=== PATIENT | female | born 1990 | race Caucasian/White ===

== ENCOUNTER 2021-09-03 16:09 | Emergency (ER) | payer OTHER, SELFPAY ==
[2021-09-03 16:27] VITALS: BP 115/68; PULSE 73; RESP 18; TEMP 37.1; O2SAT 95; BMI 25.0
--- NOTE | 2021-09-03 16:45 | ED_ITS ---
HPI - General Adult General Chief complaint: Sore Throat Stated complaint: SORE THROAT,CONGESTION Time Seen by Provider: 09/03/21 16:15 History of Present Illness HPI narrative: 30-year-old female coming in today complaining of sore throat for a week. She denies fevers or chills. States that her throat just isn't getting any better. She developed bilateral ear pain in the last couple of days as well with some mildly muffled hearing. She has been coughing but it is nonproductive. She does not feel short of breath and has no chest pain. She denies any sick contacts. She has been doing at home COVID test which have been negative. She denies abdominal discomfort diarrhea or urinary symptoms. She denies any new skin rashes. No recent traveling. No significant headaches. She feels tired but not weak. Related Data Home Medications Medication Instructions Recorded Confirmed gabapentin 100 mg capsule mg 09/03/21 Previous Rx's Medication Instructions Recorded dextroamphetamine-amphetamine 20 20 mg PO BID #60 tab 08/30/21 mg tablet (Adderall) azithromycin 250 mg tablet 250 mg PO DIRECTED #6 tab 09/03/21 (Zithromax Z-Jeremiah) Allergies Allergy/AdvReac Type Severity Reaction Status Date / Time amoxicillin Allergy Severe Verified 09/03/21 16:32 Review of Systems Narrative: Entire review of systems was done was negative except for those things mentioned in the HPI. [facility] Medical History ADD (attention deficit disorder) Social History Smoking Status: Never smoker How often do you have a drink containing alcohol: never AUDIT-C Alcohol total score: 0 Non-prescribed substance use: denies use Exam Narrative: Exam Narrative: Well-nourished well-developed patient in no acute distress. Alert and oriented. Answers questions appropriately. Mood and affect are appropriate. Thoughts are goal oriented and rational. No tangential or magical thinking noted. Patient speaks in full sentences without needing to catch her breath. She does sound very congested. She does not appear ill or toxic. HEENT: Normocephalic atraumatic. Pupils are equally round reactive to light. Extraocular muscles are intact. Conjunctivae are moist without any icterus noted. Moist mucous membranes. Posterior pharynx has mild tonsillar swelling and mild erythema without exudates. Soft palate is in place and is not protruding forward. Neck is soft without any lymphadenopathy or thyromegaly. No masses are appreciated. TMs are dull bilaterally the right 1 is erythematous and bulging. Cardiovascular: Heart is regular rate and rhythm S1 and S2 are present without any murmurs. Lungs: Clear to auscultation bilaterally no wheezes rhonchi or rales are appreciated. Patient takes deep breaths without any discomfort. Skin: Well perfused without any obvious rashes. Const: Vital Signs, click to edit/add: Vital Signs - 24 hr 09/03/21 16:27 09/03/21 17:45 Temperature 98.7 F Pulse Rate [Pulse Oximeter] 73 80 Respiratory Rate 18 14 [facility]] 115/68 Pulse Oximetry 95 98 Course Vital Signs Vital signs: Initial Vital Signs Temperature 98.7 F 09/03/21 16:27 Temperature Source Temporal Artery Scan 09/03/21 16:27 Pulse Rate 73 09/03/21 16:27 Respiratory Rate 18 09/03/21 16:27 Blood Pressure 115/68 09/03/21 16:27 Blood Pressure Mean 83 09/03/21 16:27 Blood Pressure Position Supine 09/03/21 16:27 Pulse Oximetry 95 09/03/21 16:27 Oxygen Delivery Method 09/03/21 16:27 Vital Signs Temperature 98.7 F 09/03/21 16:27 Pulse Rate 73 09/03/21 16:27 Respiratory Rate 18 09/03/21 16:27 Blood Pressure 115/68 09/03/21 16:27 Pulse Oximetry 95 09/03/21 16:27 Temperature 98.7 F 09/03/21 16:27 Pulse Rate 80 09/03/21 17:45 Respiratory Rate 14 09/03/21 17:45 Blood Pressure 115/68 09/03/21 16:27 Pulse Oximetry 98 09/03/21 17:45 Medical Decision Making MDM Narrative Medical decision making narrative: Labs unremarkable-negative for flu, COVID and strep. Given the patient's right- sided otitis media will go ahead and treat with azithromycin as patient is allergic to amoxicillin. Lab Data Lab results reviewed: Yes I reviewed the patient's lab results Labs: Lab Results 09/03/21 09/03/21 09/03/21 Range/Units 16:45 17:00 17:00 SARS-CoV-2 (PCR) Negative SARS-CoV-2 (Negative) Influenza Type A (PCR) NEGATIVE (Negative) Influenza Type B (PCR) NEGATIVE (Negative) Group A Strep Rapid Cancelled Group A Strep DNA Not Detected (No Detected) Discharge Plan Discharge Clinical Impression: Acute viral syndrome, Otitis media Patient Disposition: Home, Self-Care Condition: Stable Additional Instructions: Get plenty of rest and stay well hydrated. Okay to use Tylenol or ibuprofen as needed/as directed for discomfort. Take all antibiotics as prescribed. Prescriptions: New azithromycin [Zithromax Z-Jeremiah] 250 mg tablet 250 mg PO DIRECTED Qty: 6 0RF Taper: Z-JEREMIAH 500 mg Q24H for 1 Day and 0 Hour 250 mg Q24H for 4 Days and 0 Hour Rx Instructions: 500mg on day 1, 250mg daily on days 2-5 No Action gabapentin 100 mg capsule 0RF Label Comments: TAKE 1 CAPSULE AT BEDTIME FOR 3 DAYS, INCREASE TO 2 CAPSULES AT BEDTIME IF TOLERATING dextroamphetamine-amphetamine [Adderall] 20 mg tablet 20 mg PO BID Qty: 60 0RF Follow Up/Referrals: Ophelia Phipps MD [Primary Care Provider] - Stand Alone Forms: [employer] Info Instructions
[2021-09-03 17:45] VITALS: PULSE 80; RESP 14; O2SAT 98
[2021-09-03 17:50] LABS: PCR FLU A NEGATIVE (Negative); PCR FLU B NEGATIVE (Negative); SARS PCR* Negative SARS-CoV-2 (Negative)
[2021-09-03 17:55] LABS: Strep A DNA Probe* Not Detected (No Detected)
[2021-09-03 18:12] VITALS: BP 134/72; PULSE 87; RESP 14; TEMP 37.1
== END 2021-09-03 18:12 | disposition home or self-care (01) ==
PROVIDERS: Emergency Provider Family Medicine; PCP Family Medicine
DX: B34.9 Viral infection, unspecified (principal); H66.91 Otitis media, unspecified, right ear
CPT/HCPCS: 87430; 87502; 87635; 87651; 99283; 99284

== ENCOUNTER 2021-09-11 17:20 | Emergency (ER) | payer SELFPAY ==
[2021-09-11 17:41] VITALS: BP 139/89; PULSE 84; RESP 22; TEMP 37.3; O2SAT 99; BMI 25.0
--- NOTE | 2021-09-11 18:12 | CRLHL7_ITS ---
For Patients: As a result of the Century Cures Act, medical imaging exams and procedure reports are released immediately into your electronic medical record. You may view this report before your referring provider. If you have questions, please contact your health care provider. INDICATION: COUGH, CHESP PAIN, FEVER TECHNIQUE: Chest 1 view. COMPARISON: 03/10/21 FINDINGS: Cardiovascular and mediastinum: Heart size and vasculature are normal in caliber and appearance. Mediastinum is within normal limits. Lungs and pleural space: Lungs are clear. No sign of infiltrate or mass. No sign of pleural effusion. No pneumothorax. Bones and soft tissues: No significant findings. IMPRESSION: Unremarkable chest. Dictated by: Sai Villanueva MD @ 09/11/2021 19:21:49 (Electronically Signed)
--- NOTE | 2021-09-11 18:19 | ED_ITS ---
HPI - General Adult General Chief complaint: Cough Stated complaint: Cough,chest pain, fever Time Seen by Provider: 09/11/21 18:06 History of Present Illness HPI narrative: 30-year-old female coming in today complaining of cold symptoms. Says she has a cough. Had a fever yesterday of greater than 100. She continues to have pressure in both ears. Was recently treated with azithromycin for an otitis media. Denies any ear drainage. She is not short of breath. The cough is becoming worse. She has been tested multiple times for COVID and influenza which have been negative. Related Data Home Medications Medication Instructions Recorded Confirmed gabapentin 100 mg capsule mg 09/03/21 Previous Rx's Medication Instructions Recorded dextroamphetamine-amphetamine 20 20 mg PO BID #60 tab 08/30/21 mg tablet (Adderall) azithromycin 250 mg tablet 250 mg PO DIRECTED #6 tab 09/03/21 (Zithromax Z-Darvin) Allergies Allergy/AdvReac Type Severity Reaction Status Date / Time amoxicillin Allergy Severe Verified 09/03/21 16:32 Review of Systems Status of ROS: Reports: 10 or more systems reviewed and unremarkable except as noted in History and below [facility] Medical History ADD (attention deficit disorder) Social History Smoking Status: Never smoker How often do you have a drink containing alcohol: never AUDIT-C Alcohol total score: 0 Non-prescribed substance use: denies use service: No Exam Narrative: Exam Narrative: Well-nourished well-developed patient in no acute distress. Alert and oriented. Answers questions appropriately. Patient speaks in full sentences without needing to catch their breath. She is congested in cough during the exam. HEENT: Normocephalic atraumatic. Pupils are equally round reactive to light. Extraocular muscles are intact. Conjunctivae are moist without any icterus noted. Moist mucous membranes. Posterior pharynx is normal. Neck is soft without any lymphadenopathy or thyromegaly. No masses are appreciated. TMs are clear bilaterally. Cardiovascular: Heart is regular rate and rhythm S1 and S2 are present without any murmurs. Lungs: Clear to auscultation bilaterally no wheezes rhonchi or rales are appreciated. Patient takes deep breaths without any discomfort. Skin: Well perfused without any obvious rashes. Const: Vital Signs, click to edit/add: Vital Signs - 24 hr 09/11/21 17:41 Temperature 99.2 F Pulse Rate [Pulse Oximeter] 84 Respiratory Rate 22 Blood Pressure [[facility] Upper Arm] 139/89 Pulse Oximetry 99 Course Vital Signs Vital signs: Initial Vital Signs Temperature 99.2 F 09/11/21 17:41 Temperature Source Temporal Artery Scan 09/11/21 17:41 Pulse Rate 84 09/11/21 17:41 Pulse Rhythm 09/11/21 17:41 Respiratory Rate 22 09/11/21 17:41 Blood Pressure 139/89 09/11/21 17:41 Blood Pressure Mean 105 09/11/21 17:41 Blood Pressure Position Sitting 09/11/21 17:41 Pulse Oximetry 99 09/11/21 17:41 Oxygen Delivery Method 09/11/21 17:41 Vital Signs Temperature 99.2 F 09/11/21 17:41 Pulse Rate 84 09/11/21 17:41 Respiratory Rate 22 09/11/21 17:41 Blood Pressure 139/89 09/11/21 17:41 Pulse Oximetry 99 09/11/21 17:41 Temperature 99.2 F 09/11/21 17:41 Pulse Rate 84 09/11/21 17:41 Respiratory Rate 22 09/11/21 17:41 Blood Pressure 139/89 09/11/21 17:41 Pulse Oximetry 99 09/11/21 17:41 Medical Decision Making MDM Narrative Medical decision making narrative: 30-year-old female with URI symptoms and cough. We discussed this is likely viral in nature. She is status post treatment with azithromycin. Flu, COVID, mono are negative. Chest x-ray is clear. At this point we discussed symptomatic treatment reasons to return for follow-up. Patient was agreeable had no other questions. Lab Data Lab results reviewed: Yes I reviewed the patient's lab results Labs: Lab Results 09/11/21 09/11/21 09/11/21 Range/Units 18: 18:22 18:50 WBC 6.39 (4.50-11.00) K/uL RBC 5.07 (4.00-5.20) m/uL Hgb 14.4 (12.0-16.0) gm/dL Hct 43.2 (33.0-51.0) % MCV 85 (80-100) fL MCH 28 (26-34) pg MCHC 33 (32-36) gm/dL RDW Coeff of Rich 12.2 (11.5-15.5) % Plt Count 269 (140-440) K/uL Neut % (Auto) 70.8 (42.0-72.0) % Lymph % (Auto) 23.0 (20-44) % [place] % (Auto) 5.2 (0.0-11.0) % Eos % (Auto) 0.5 (0.0-7.0) % Baso % (Auto) 0.3 (0.0-3.0) % Neut # (Auto) 4.53 (1.7-7.0) K/uL Lymph # (Auto) 1.47 (0.90-2.90) K/uL [place] # (Auto) 0.30 (0.00-0.90) K/UL Eos # (Auto) 0.03 (0.00-0.50) K/uL Baso # (Auto) 0.02 (0.00-0.30) K/uL Abs Immat Gran (auto) 0.01 (0.00-0.30) K/uL Monoscreen Negative (Negative) Group A Strep DNA NOT DETECTED (No Detected) Imaging Data Chest x-ray: Attestation: I have reviewed the pertinent imaging results. Radiologist's impression: FINDINGS: Cardiovascular and mediastinum: Heart size and vasculature are normal in caliber and appearance.? Mediastinum is within normal limits.? Lungs and pleural space: Lungs are clear.? No sign of infiltrate or mass.? No sign of pleural effusion.? No pneumothorax.? Bones and soft tissues: No significant findings.? IMPRESSION: Unremarkable chest. Discharge Plan Discharge Clinical Impression: Acute viral syndrome, Cough Patient Disposition: Home, Self-Care Condition: Stable Additional Instructions: Make sure to stay well hydrated. Okay to take ibuprofen and Tylenol as needed for discomfort and fevers. Okay to take [id number] cough syrups. Follow- up with your doctor if you are not improving over the next couple of weeks. Prescriptions: No Action gabapentin 100 mg capsule 0RF Label Comments: TAKE 1 CAPSULE AT BEDTIME FOR 3 DAYS, INCREASE TO 2 CAPSULES AT BEDTIME IF TOLERATING azithromycin [Zithromax Z-Darvin] 250 mg tablet 250 mg PO DIRECTED Qty: 6 0RF Taper: Z-DARVIN 500 mg Q24H for 1 Day and 0 Hour 250 mg Q24H for 4 Days and 0 Hour Rx Instructions: 500mg on day 1, 250mg daily on days 2-5 dextroamphetamine-amphetamine [Adderall] 20 mg tablet 20 mg PO BID Qty: 60 0RF Follow Up/Referrals: Ophelia Phipps MD [Primary Care Provider] - Stand Alone Forms: [employer] Info Instructions
[2021-09-11 18:36] LABS: Basophils Absolute Auto 0.02 K/uL (0.00-0.30); Basophils Percent Auto 0.3 % (0.0-3.0); Eosinophils Absolute Auto 0.03 K/uL (0.00-0.50); Eosinophils Percent Auto 0.5 % (0.0-7.0); Hematocrit 43.2 % (33.0-51.0); Hemoglobin* 14.4 gm/dL (12.0-16.0); Immature Granulocytes Abs Auto 0.01 K/uL (0.00-0.30); Lymphocytes Absolute Auto 1.47 K/uL (0.90-2.90); Mean Corpuscular HGB Conc 33 gm/dL (32-36); Mean Corpuscular Hemoglobin 28 pg (26-34); Mean Corpuscular Volume 85 fL (80-100); Monocytes Percent Auto 5.2 % (0.0-11.0); Neutrophils Absolute Auto 4.53 K/uL (1.7-7.0); Neutrophils Percent Auto 70.8 % (42.0-72.0); Platelet Count* 269 K/uL (140-440); RDW Coefficient of Variation % 12.2 % (11.5-15.5); Red Blood Count 5.07 m/uL (4.00-5.20); White Blood Count* 6.39 K/uL (4.50-11.00)
[2021-09-11 18:39] LABS: Mono Screen* Negative (Negative)
[2021-09-11 19:04] LABS: Slide Review Reflex No
[2021-09-11 19:44] LABS: Strep A DNA Probe* NOT DETECTED (No Detected)
[2021-09-11 19:58] LABS: PCR FLU A Negative PCR FLU A (Negative); PCR FLU B Negative PCR FLU B (Negative)
[2021-09-11 20:08] LABS: SARS PCR* Negative SARS-CoV-2 (Negative)
== END 2021-09-11 20:20 | disposition home or self-care (01) ==
PROVIDERS: Emergency Provider Family Medicine; PCP Family Medicine
DX: R05.9 Cough, unspecified (principal); B34.9 Viral infection, unspecified
CPT/HCPCS: 36415; 71045; 85025; 86308; 87502; 87635; 87651; 99283; 99284

== ENCOUNTER 2022-09-07 07:40 | Outpatient (CLI) | payer BC, SELFPAY | END 2022-09-07 07:41 | disposition home or self-care (01) | LOC: NFLDREF 20:33 | PROVIDERS: PCP Family Medicine; Referring Provider Family Medicine; Visit Provider Family Medicine | DX: Z01.419 Encounter for gynecological examination (general) (routine) without abnormal findings (principal); F41.9 Anxiety disorder, unspecified; Z13.6 Encounter for screening for cardiovascular disorders | CPT/HCPCS: 80053; 80061 ==

== ENCOUNTER 2023-09-10 09:58 | Outpatient (CLI) | payer OTHER, SELFPAY ==
--- OUTSIDE RECORDS SUMMARY | 2023-09-13 01:31 | XMS_ITS | Encounter Summary ---
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 LABORATORY GFR Estimate >90 >60 mL/min/1. 73m2 06/11/2023 12:55 PM CDT LABORATORY Calcium 9.0 8.6 - 10.0 mg/dL 06/11/2023 12:55 PM CDT LABORATORY Glucose 121(H) 70 - 99 mg/dL 06/11/2023 12:55 PM CDT LABORATORY Blood STRUCTURE OF LEFT UPPER LIMB / Unknown Venipuncture / Unknown 06/11/2023 12:20 PM CDT 06/11/2023 12:31 PM CDT Tai Bermudez MD LAB - BLOOD ORDERABL ES LABORATORY [facility] [address] [facility] (1st floor, no room number) [place] [address] * EKG 12-lead, tracing only (06/11/2023 12:02 PM CDT) Systolic Blood Pressure mmHg RADIOLOGY RESULTS Diastolic Blood Pressure mmHg RADIOLOGY RESULTS Ventricular Rate 70 BPM RAD IOLOGY RESULTS Atrial Rate 70 BPM RADIOLOG Y RESULTS [place] Interval 130 ms RADIOLOG Y RESULTS QRS Duration 98 ms RADIOLO GY RESULTS QT 440 ms RADIOLOGY RESULTS QTc 475 ms RADIOLOGY RESULTS P [place] 63 degrees RADIOLOGY RESULTS R AXIS 70 degrees RADIOLOGY RESULTS T [place] 56 degrees RADIOLOGY RESULTS Interpretation ECG Sinus rhythm Normal ECG When compared with ECG of 13-SEP-2022 16:53, No significant change was found Unconfirmed report - interpretation of this ECG is computer generated - see medical record for final interpretation Confirmed by - EMERGENCY ROOM, PHYSICIAN ([id number]), business editor MADDY CALHOUN ([id number]) on 06/11/2023 12:48:29 PM RADIOLOGY RESULTS 06/11/2023 12:0 2 PM CDT 06/11/2023 12:48 PM CDT Tai Bermudez MD ECG ORDERABLES RADIOLOGY RESULTS documented in this encounter Visit Diagnoses Diagnosis Nonintractable headache, unspecified chronicity pattern, unspecified headache type Chest pain, unspecified type Paresthesias Disturbance of skin sensation documented in this encounter Administered Medications Inactive Administered Medications - up to 3 most recent administrations Medication Order MAR Action Action Date Dose Rate Site CT Scan Flush Intravenous, 100 mL, ONCE, On Sat06/11/23 at 1500, For 1 dose, This entry is for use by Radiology to intermittently used as a flush in patients receiving a CT scan. $Given 06/11/2023 2:57 PM CDT 80 mLs diphenhydrAMINE (BENADRYL) injection 25 mg 25 mg, Intravenous, ONCE, On Sat06/11/23 at 1820, For 1 dose, Protect from light. $Given 06/11/2023 6:42 PM CDT 25 mg iopamidol (ISOVUE-370) solution 500 mL 500 mL, Intravenous, ONCE, On Sat06/11/23 at 1500, For 1 dose $Given 06/11/2023 2:57 PM CDT 80 mLs ketorolac (TORADOL) injection 15 mg 15 mg, Intravenous, ONCE, On Sat06/11/23 at 1820, For 1 dose, Can cause pain on injection. If ordered intravenously (IV) : administer through a running maintenance fluid over 1 minute followed by a flush. If patient complains of pain on injection, may dilute 15-30 mg in 5 mL and push over 1 to 2 minutes. $Given 06/11/2023 6:42 PM CDT 15 mg magnesium sulfate 2 g in 50 mL sterile water intermittent infusion 2 g, Intravenous, Administer over 60 Minutes, at 50 mL/hr, ONCE, On Sat06/11/23 at 1820, For 1 dose $New Bag 06/11/2023 6:42 PM CDT 2 g 50 mL/hr metoclopramide (REGLAN) injection 10 mg 10 mg, Intravenous, Administer over 2 Minutes, ONCE, On Sat06/11/23 at 1820, For 1 dose, Avoid use if patient has full bowel obstruction or perforation. Irritant. $Given 06/11/2023 6:42 PM CDT 10 mg ondansetron (ZOFRAN) injection 4 mg 4 mg, Intravenous, EVERY 30 MIN PRN, nausea, vomiting, Administer over 2-5 Minutes, Starting on Sat06/11/23 at 1434, For 3 doses, May repeat in 30 minutes as needed, up to 3 doses. Irritant. sodium chloride 0.9% BOLUS 1,000 mL Intravenous, 1,000 mL, ONCE, at 1,000 mL/hr, Administer over 1 Hours, On Sat06/11/23 at 1435, For 1 dose $New Bag 06/11/2023 2:48 PM CDT 1,000 mLs 1000 mL/hr sodium chloride 0.9% BOLUS 1,000 mL Intravenous, 1,000 mL, ONCE, at 1,000 mL/hr, Administer over 1 Hours, On Sat06/11/23 at 1820, For 1 dose $New Bag 06/11/2023 6:42 PM CDT 1,000 mLs 1000 mL/hr documented in this encounter Active and Recently Administered Medications Times are shown in CDT. Scheduled Medication Order 06/09/2023 06/10/2023 06/11/2023 CT Scan Flush (COMPLETED) Intravenous, 100 mL, ONCE, On Sat06/11/23 at 1500, For 1 dose, This entry is for use by Radiology to intermittently used as a flush in patients receiving a CT scan. 1457 ($Given - Provi summer: Altagracia Salguero) diphenhydrAMINE (BENADRYL) injection 25 mg (COMPLETED) 25 mg, Intravenous, ONCE, On Sat06/11/23 at 1820, For 1 dose, Protect from light. 184 ($Given - Provi summer: Michelle Sales RN) HYDROmorphone (PF) (DILAUDID) injection 0.5 mg 0.5 mg, Intravenous, ONCE, On Sat06/11/23 at 1435, For 1 dose 1435 (Canceled Entry - Provider: Orders Generic Provider - Comment: Automatically canceled at discontinue of medication order) iopamidol (ISOVUE-370) solution 500 mL (COMPLETED) 500 mL, Intravenous, ONCE, On Sat06/11/23 at 1500, For 1 dose 1457 ($Given - Provi summer: Altagracia Salguero) ketorolac (TORADOL) injection 15 mg (COMPLETED) 15 mg, Intravenous, ONCE, On Sat06/11/23 at 1820, For 1 dose, Can cause pain on injection. If ordered intravenously (IV) : administer through a running maintenance fluid over 1 minute followed by a flush. If patient complains of pain on injection, may dilute 15-30 mg in 5 mL and push over 1 to 2 minutes. 184 ($Given - Provi summer: Michelle Sales RN) magnesium sulfate 2 g in 50 mL sterile water intermittent infusion (COMPLETED) 2 g, Intravenous, Administer over 60 Minutes, at 50 mL/hr, ONCE, On Sat06/11/23 at 1820, For 1 dose 184 ($New Bag - Pro vider: Michelle Sales RN)1913 (Stopped - Provider: Michelle Sales RN) metoclopramide (REGLAN) injection 10 mg (COMPLETED) 10 mg, Intravenous, Administer over 2 Minutes, ONCE, On Sat06/11/23 at 1820, For 1 dose, Avoid use if patient has full bowel obstruction or perforation. Irritant. 184 ($Given - Provi summer: Michelle Sales RN) sodium chloride 0.9% BOLUS 1,000 mL (COMPLETED) Intravenous, 1,000 mL, ONCE, at 1,000 mL/hr, Administer over 1 Hours, On Sat06/11/23 at 1435, For 1 dose 1448 ($New Bag - Pro vider: Piper Mo RN)1657 (Stopped - Provider: Julieth Kelly RN) sodium chloride 0.9% BOLUS 1,000 mL (COMPLETED) Intravenous, 1,000 mL, ONCE, at 1,000 mL/hr, Administer over 1 Hours, On Sat06/11/23 at 1820, For 1 dose 184 ($New Bag - Pro vider: Michelle Sales, RN)191 (Stopped - Provider: Michelle Sales, RN) PRN Medication Order 06/09/2023 06/10/2023 06/11/2023 ondansetron (ZOFRAN) injection 4 mg 4 mg, Intravenous, EVERY 30 MIN PRN, nausea, vomiting, Administer over 2-5 Minutes, Starting on Sat06/11/23 at 1434, For 3 doses, May repeat in 30 minutes as needed, up to 3 doses. Irritant. documented in this encounter Care Teams Shank Boner Relationship Specialty Start Date End Date No Ref-Primary, Physician PCP - General 03/29/19 documented as of this encounter
--- OUTSIDE RECORDS SUMMARY | 2023-09-13 01:31 | XMS_ITS | Referral Summary ---
Author Organization [facility] Address [address] [place] [address] Care Team Providers Care Resin Painter Name Role Phone No Ref-Primary, Physician Primary Care Provider Allergies Active Allergy Reactions Criticality Noted Date Comments Penicillins 10/17/2018 Ceftriaxone Hives 03/29/2019 Medications Medication Sig Dispensed Refills Start Date End Date Status Escitalopram Oxalate (LEXAPRO PO) Active Amphetamine-Dextroa mphetamine (ADDERALL PO) Active levonorgestrel (MIRENA) 52 MG (20 mcg/day) IUD by Intrauterine route once Active Active Problems Problem Noted Date Diagnosed Date Encounter for triage in patient 020 ACP (advance care planning) 10/20/2018 Overview: Paperwork given today Resolved Problems Problem Noted Date Diagnosed Date Resolved Date Health Residential 10/20/2018 08/12/2023 Immunizations Name Administration Dates Next Due HPV Quadrivalent 07/31/2013,05/22/2013 HPV9 10/19/2015 HepB, Unspecified 12/17/2000,10/09/2000,06/08/19 01 Hepatitis B, Peds 12/17/2000,10/09/2000,06/08/19 01 Historical DTP/aP 03/20/1993,11/10/1992,06/20/18 90,1988 MMR 03/01/1997,11/10/1992 Polio, Unspecified 03/20/1993,11/10/1992, 990,1988 TDAP Vaccine (Adacel) 12/18/2011 Td (Adult), Adsorbed 11/03/2001 Social History Tobacco Use Types Packs/Day Years [...] on file Sexual Orientation Not on file Last Filed Vital Signs Vital Sign Reading Time Taken Comments Blood Pressure 125/90 06/11/2023 11:54 AM CDT Pulse 65 06/11/2023 11:54 AM CDT Temperature 36.2 ??C (97.1 ??F) 06/11/2023 11:54 AM C DT Respiratory Rate 20 06/11/2023 11:54 AM CDT Oxygen Saturation 100% 06/11/2023 11:54 AM CDT Inhaled Oxygen Concentration - - Weight 70.3 kg (155 lb) 09/13/2022 1:55 PM CDT Height 165.1 cm (5' 5) 09/13/2022 1:55 PM CDT Body Mass Index 25.79 09/13/2022 1:55 PM CDT Plan of Treatment Not on file Care Teams Resin Painter Relationship Specialty Start Date End Date No Ref-Primary, Physician PCP - General 03/29/19
--- OUTSIDE RECORDS SUMMARY | 2023-09-13 01:31 | XMS_ITS | Clinical Summary ---
Author Organization [facility] Address [address] [place] [id number] Care Team Providers Care Paper Carrier Name Role Phone No Ref-Primary, Physician Primary [...] Noted Date Diagnosed Date Resolved Date Health Nursing Home 10/20/2018 08/12/2023 Immunizations Name Administration Dates Next Due HPV Quadrivalent 07/31/2013,05/22/2013 HPV9 10/19/2015 HepB, Unspecified 12/17/2000,10/09/2000,06/08/19 01 Hepatitis B, Peds 12/17/2000,10/09/2000,06/08/19 01 Historical DTP/aP 03/20/1993,11/10/1992,06/20/18 90,1988 MMR 03/01/1997,11/10/1992 Polio, Unspecified 03/20/1993,11/10/1992, 990,1988 TDAP Vaccine (Adacel) 12/18/2011 Td (Adult), Adsorbed 11/03/2001 Family History Medical History Relation Comments Cirrhosis Father Non-alcolic cirr hosis of the liver Diabetes Father Multiple myeloma Maternal Grandfather Hearing Loss Mother Osteonecrosis Deep Vein Thrombosis Paternal Grandfather Diabetes Type 2 Paternal Grandfather Cerebrovascular Disease No family hx of Hyperlipidemia No family hx of Hypertension No family hx of Myocardial Infarction No family hx of Thyroid Cancer No family hx of Thyroid Disease No family hx of Relation Status Comments Father Alive Maternal Grandfather Mother Alive Paternal Grandfather Sister Alive Social History Tobacco Use Types Packs/Day Years [...] 09/13/2022 1:55 PM CDT Plan of Treatment Health Maintenance Due Date Last Done Comments ANNUAL REVIEW OF HM ORDERS 1988 HIV SCREENING 09/28/2003 HEPATITIS C SCREENING 2006 YEARLY PREVENTIVE VISIT 08/26/2018 08/26/2017 COVID-19 Vaccine ( season) 2022 06/21/2020, 05/31/2020 PHQ-2 (once per calendar year) 2023 10/20/2018, 10/20/2018 ADVANCE CARE PLANNING 10/21/2023 10/20/2018, 019 INFLUENZA VACCINE (#1) 2023 2, 11/07/2016, 12/18/2011 PAP 09/12/2025 09/12/2022, 08/11/2009 DTAP/TDAP/TD IMMUNIZATION (7 - Td or Tdap) 10/11/2029 10/12/2019, 12/18/2011, 11/03/2001, Additional history exists IPV IMMUNIZATION Completed 03/20/1993, , 06/20/1989, Additional history exists HEPATITIS B IMMUNIZATION Completed 001, 12/17/2000, 10/09/2000, Additional history exists HPV IMMUNIZATION Completed 10/19/2015, 07/2013, 05/22/2013 MENINGITIS IMMUNIZATION Aged Out No l onger eligible based on patient's age to complete this topic Pneumococcal Vaccine: Pediatrics (0 to 5 Years) and At-Risk Patients (6 to 64 Years) Aged Out No longer eligible based on patient's age to complete this topic RSV MONOCLONAL ANTIBODY Aged Out No l onger eligible based on patient's age to complete this topic Care Teams Paper Carrier Relationship Specialty Start Date End Date No Ref-Primary, Physician PCP - General 03/29/19
--- OUTSIDE RECORDS SUMMARY | 2023-09-13 01:31 | XMS_ITS | Encounter Summary ---
Author Organization [facility] Address [address], [place] [address] Care Team Providers Care Major Case Detective Name Role Phone Akilah Hicks MD Primary Care Provider [phone] Reason for Visit * Reason Comments Headache CHEST PAIN Encounter Details Date Type Department Care Team (Late st Contact Info) Description 06/11/2023 12:20 PM CDT [facility] [address] [place] [address] Oscar Davalos PA-C [address] [place] [address] Chest pain, unspecified type; Acute intractable headache, unspecified headache type; Vomiting, unspecified vomiting type, unspecified whether nausea present Social History Tobacco Use Types Packs/Day Years Used Date Smoking Tobacco: Never Smokeless Tobacco: Never Alcohol Use Standard Drinks/Week Comments Yes 1 (1 standard drink = 0.6 oz pure alcohol) Alcoholic Drinks/day: Freq:1-2 per week Sex and Gender Information Value Date Recorded Sex Assigned at Not on file Gender Identity Not on file Sexual Orientation Not on file documented as of this encounter Last Filed Vital Signs Vital Sign Reading Time Taken Comments Blood Pressure 119/74 06/11/2023 10:57 AM CDT Pulse 68 06/11/2023 10:57 AM CDT Temperature 36.4 ??C (97.5 ??F) 06/11/2023 10:57 AM C DT Respiratory Rate 20 06/11/2023 10:57 AM CDT Oxygen Saturation 100% 06/11/2023 10:57 AM CDT Inhaled Oxygen Concentration - - Weight - - Height - - Body Mass Index - - documented in this encounter Progress Notes * Oscar Davalos PA-C - 06/11/2023 12:20 PM CDT dict * Oscar Davalos PA-C - 06/11/2023 12:00 AM CDT NAME: KRYSTINA LANG CSN: [id number] CLINIC NOTE DATE OF SERVICE: 06/11/2023 : 1990 SUBJECTIVE: This is a 32-year-old female who presents with sudden onset of severe headache and left-sided chest pain. The patient states that she was at work. She had a sudden onset of left-sided headache which she rates as a 10/10, left-sided chest pain which she rates as 7/10, and a right-sided neck pain that goes down into her right arm. It all came on at the same time and all came on suddenly. The headache is 10/10, the chest pain is 7/10 she has associated with nausea and vomiting. She does feel somewhat short of breath. She has had a history of migraines before. The headache somewhat feels like a migraine, but it is on the opposite side of the head that it usually is. The radicular pain into the arm, the neck pain, the chest pain is different and new than what she has had. She has had a family history of heart disease on Dad's side including ND sometimes at young ages. She has hada little bit of left-sided ankle swelling that is a chronic issue from an ankle fracture, but no other calf pain or swelling. No one-sided weakness, slurring of her speech, facial drooping. She does feel somewhat lightheaded, but no vertiginous-type symptoms. COMPLETE REVIEW OF SYSTEMS: Otherwise negative except for noted above. PAST MEDICAL HISTORY: All updated and reviewed by myself in [facility]. SURGICAL HISTORY: All updated and reviewed by myself in [facility]. SOCIAL HISTORY: All updated and reviewed by myself in [facility]. ALLERGIES: ALL UPDATED AND REVIEWED BY MYSELF IN [facility]. MEDICATIONS: All updated and reviewed by myself in [facility]. VITAL SIGNS: All updated and reviewed by myself in [facility]. PHYSICAL EXAMINATION: GENERAL: Well-developed, well-nourished female, no apparent distress. SKIN: Warm and dry. She does prefer to lie with her head underneath the pillow in a darkened room. HEENT: Eyes, PERRLA, EOMI. Oral mucosa is moist and pink. NECK: Supple without adenopathy or thyromegaly. LUNGS: Clear throughout. HEART: Regular rate and rhythm. NEUROLOGIC: Reveals cranial nerves 2 through 12 grossly intact. Strength is normal. Sensation to light touch is somewhat decreased over the 4th and 5th fingers of the right hand, but otherwise normalthroughout. IMAGING: EKG shows normal sinus rhythm. ASSESSMENT: 1.Chest pain. 2.Acute intractable headache, unspecified. 3.Vomiting. PLAN: With all of this, she needs more than we can do here to evaluate for possible cardiac or cerebral issues, so normally, I would have given her aspirin, but because of the 10/10 headache, I felt to be best to hold off on that, so she was given Zofran 8 mg ODT. I then spoke with one of the ER doctors at [facility] across the street who agreed to accept the transfer. She had a clark driver here,so I felt it was best to get her to the emergency room as quickly as possible and that is what the patient wanted. She did not want ambulance transfer, so the patient was taken across the street by the clark driver for further evaluation and treatment. The patient was agreeable to this plan, left in stable condition. DENITA HENSON/RANDY /[id number] documented in this encounter Nursing Notes * Urmila Spangler, RN - 06/11/2023 12:20 PM CDT Pt's boss drove her to clinic. Sx came on suddenly at workk. Pt c/o migraine bolanos and chest pain starting this am. Vomited x three today. Also feels dizzy and light sensitive. Pt has a history of migraine but pain is worse and on left side. Pt is also having chest pain which is new for her. Patient requests an excuse letter for work/school: No documented in this encounter Plan of Treatment Not on file documented as of this encounter Procedures Procedure Name Priority Date/Time Associated Diagnosis Comments ECG 12 LEAD OUTPATIENT STAT 06/11/2023 12:03 PM CDT Chest pain, unspecified type documented in this encounter Results * ECG 12-LEAD ROUTINE (Non Lab to perform-Today)-STAT (06/11/2023 12:03 PM CDT) Ventricular Rate 63 BPM [facility] Atrial Rate 63 BPM [facility] P-R Interval 128 ms [facility] QRS Duration 94 ms [facility] QT 428 ms [facility] QTc 437 ms [facility] P [employer] 64 degrees MUSE [facility] R [employer] 67 degrees M[facility] T [employer] 55 degrees MUSE [facility] 06/11/2023 12:0 3 PM CDT Narrative [facility] - 06/11/2023 11:11 AM CDT Sinus rhythm Normal ECG When compared with ECG of 04-OCT-2014 09:48, No significant change was found Confirmed by Russ Centeno ([id number]) on 06/11/2023 11:11:37 AM Procedure Note Russ Centeno MD - 06/11/2023 Sinus rhythm Normal ECG When compared with ECG of 04-OCT-2014 09:48, No significant change was found Confirmed by Russ Centeno ([id number]) on 06/11/2023 11:11:37 AM Delfino K Jayne MBBS PN ECG ORDERABLES [facility] [address] [place] [address] documented in this encounter Visit Diagnoses Diagnosis Chest pain, unspecified type Acute intractable headache, unspecified headache type Vomiting, unspecified vomiting type, unspecified whether nausea present documented in this encounter Administered Medications Inactive Administered Medications - up to 3 most recent administrations Medication Order MAR Action Action Date Dose Rate Site ondansetron (ZOFRAN-ODT) disintegrating tablet 8 mg 8 mg, Oral, ONCE, On Sat06/11/23 at 1145, For 1 dose, Do not swallow tablet whole. Allow to dissolve on the tongue without chewing. Given 06/11/2023 11:23 AM CDT 8 mg documented in this encounter Care Teams Major Case Detective Relationship Specialty Start [place] [id number] [place] [id number] PCP - General 05/29/10 documented as of this encounter
--- OUTSIDE RECORDS SUMMARY | 2023-09-13 01:31 | XMS_ITS | Clinical Summary ---
Author Organization [email or web address] Address [address], [place] [address] Care Team Providers Care Research And Development Scientist Name Role Phone Akilah Hicks MD Primary Care Provider [phone] Source Comments You are receiving this document as you are listed as the primary care provider,follow-up provider, or the patient has been referred to you for consultation.This is in compliance with the Medicare andMedicaid EHR Incentive Program,which states Providers who transition their patient to another setting of careor provider of care or refers their patient to another provider of care shouldprovide summary care record for each transition of care or referral. Seeonic Allergies Active Allergy Reactions Criticality Noted Date Comments Amoxicillin-Pot Clavulanate Hives High 08/22/19 18 Cashew Nut Oil Anaphylaxis High 08/20/2017 Ceftriaxone Hives High 03/29/2019 Other 06/04/2015 PN: Steroid that was given at the age of 4 for vial menengitis... Unknown Drug Name Penicillins Hives High 10/17/2018 Medications Medication Sig Dispensed Refills Start Date End Date Status propranolol (AKA INDERAL LA) 60 MG 24 hour release capsuleIndications:M igraine without aura, without mention of intractable migraine without mention of status migrainosus Take 1 capsule by mouth daily (every 24 hours). 90 capsule 3 12/16/2013 Active Additional Information Patient not taking.Reported on 06/11/2023 cetirizine (ZYRTEC) 10 MG tablet Take 2 Tabs by mouth two times a day. 60 Tab 08/21/2017 Active Additional Information Patient not taking.Reported on 10/13/2018 drospirenone-ethinyl estradiol (CHUNG) 3-0.02 MG tablet 09/15/2018 Active rizatriptan (MAXALT-CORPORATE MANAGER) 5 MG disintegrating tabletIndications:In tractable migraine without aura and without status migrainosus Take 1 Tablet by mouth as needed for Headache. at onset of migraine. May repeat in 2 hr if needed up to 30mg in 24 hr & MAX use 5 days/month 27 Tablet 3 10/13/2018 Active Additional Information Patient not taking.Reported on 06/11/2023 ondansetron (ZOFRAN-ODT) 4 MG disintegrating tabletIndications:In tractable migraine without aura and without status migrainosus Take 1 Tablet by mouth every 8 hours as needed. 30 Tablet 1 10/13/2018 Active Additional Information Patient not taking.Reported on 06/11/2023 traZODone (DESYREL) 50 MG tablet TAKE 1 2 TABLET BY MOUTH AT BED TIME 08/19/2020 Active amphetamine-dextroam phetamine (ADDERALL) 10 MG tablet 09/26/2020 Active levonorgestrel (MIRENA) 20 MCG/DAY IUD by Intrauterine route. Active Active Problems Problem Noted Date Diagnosed Date Major depressive disorder, r ecurrent severe without psychotic features 08/05/2017 AMIE (generalized anxiety disorder) 08/05/2017 Migraine without aura 07/19/2010 Overview: Migraine Common Insomnia 07/19/2004 Overview: LW Onset: [id number] ; Insomnia NOS Resolved Problems Problem Noted Date Diagnosed Date Resolved Date Anxiety 12/19/2014 10/19/2015 Anxiety state 07/19/2010 05/22/2013 Overview: Anxiety NOS Sinusitis, chronic 05/13/2008 6 Overview: Sinusitis Chronic Dyspepsia and disorder of function of stomach 07/20/19 05 12/02/2005 Overview: LW Onset: [id number] ; Dyspepsia Immunizations Name Administration Dates Next Due 4vHPV (Gardasil) 07/31/2013,05/22/2013 9vHPV (Gardasil 9) 10/19/2015 Flu Vac Preserv Free (3+yrs) 12/18/2011 HepB, Unspecified Formulation 12/17/2000, 001,06/07/2000 Influenza IIV4 (Quadrivalent) 0.5mL (37620) 09/26,10/25/2014 TDAP (ADACEL) 12/18/2011 Td 11/03/2001 Family History Medical History Relation Name Comments High Cholesterol Father Hypertension Father Cancer Paternal Grandfather Cataract Paternal Grandfather Diabetes Paternal Grandfather type 2 Cancer Paternal Grandmother breast Glaucoma Negative Family History Macular Degeneration Negative Family History Retinal Detachment Negative Family History Relation Name Status Comments Father Paternal Grandfather Paternal Grandmother Social History Tobacco Use Types Packs/Day Years [...] CDT Inhaled Oxygen Concentration - - Weight 79.8 kg (176 lb) 09/26/2020 12:36 PM CDT Height 163.8 cm (5' 4.5) 08/26/2017 5:07 PM CDT Body Mass Index 29.74 08/26/2017 5:07 PM CDT Plan of Treatment Health Maintenance Due Date Last Done Comments Hep C Screening (Preventive Services) 1988 HIV Screening (Preventive Services) 2004 Cervical Cancer Screening 10/18/20182015, 05/22/2013, 10/11/2010, Additional history exists Adult Preventive Visit 08/27/2019 08/26/2017 COVID-19 Vaccine ( season) 2022 06/21/2020, 05/31/2020 Influenza (#1) 2023 04/06/2021, 10/26, 10/19/2015, Additional history exists DTaP/Tdap/Td (7 - Tdap) 10/11/2029 10/12/19 20, 12/18/2011, 12/18/2011 (Completed), Additional history exists Zoster/Shingles (1 of 2) 2038 IPV (Polio) Completed 03/20/1993, 10/26, 06/20/1989, Additional history exists HepB Completed 12/17/2000, 09/25, 06/07/2000 HPV Vaccine Completed 10/19/2015, 07/2013, 05/22/2013 HepA Aged Out No longer eligi ble based on patient's age to complete this topic Hib Aged Out No longer eligi ble based on patient's age to complete this topic MCV4 Aged Out No longer eligi ble based on patient's age to complete this topic Pneumococcal Aged Out No longer eligi ble based on patient's age to complete this topic Procedures Procedure Name Priority Date/Time Associated Diagnosis Comments ANATOMICAL PATH LIQUID BASED Routine 10/19/2015 2:51 PM CDT from Last 3 Months or Most Recently Relevant to Health Maintenance Results * Pap Smear (10/19/2015 2:51 PM CDT) 10/19/2015 2:51 PM CDT Narrative HP CONVERSION - 10/25/2015 3:34 PM CDT FINAL GYNECOLOGICAL CYTOLOGY REPORT Pathology #: [id number] ?Date Obtained: 10/19/2015 ? Date Received: 10/20/2015 INTERPRETATION/RESULTS: Negative for Intraepithelial Lesion or Malignancy. SPECIMEN ADEQUACY: Satisfactory for Evaluation. ??No endocervical cells/transformation zone component present. Verified on 10/25/2015 ??by RASHEEDA BURNS (electronic signature) CLINICAL NOTES: ?Abnormal bleeding: No, LMP: [id number], Menstrual status: None ?Apply, Current form of therapy: Hormone Therapy LIQUID BASED PAP SMEAR SPECIMEN TYPE: ?ROUTINE CERVICAL PAP TEST PLEASE NOTE: The pap smear is a screening test designed to aid in the detection of cervical cancer and its precursor lesions. It is not a diagnostic procedure and should not be used as the sole means of detecting cervical cancer. Both false-positive and false-negative reports may occur. Performed at [facility], [address] [place] [address] Transcriptions 04/04/2016 2:19 PM CSTNotes Recorded by Katrin Melchor, EVA on 10/26/2015 at 10:31 April Flaherty,I am writing to let you know that your PAP and HPV result is negative. This means that your test result was normal. No cancer or precancerous cells were seen.Based on current cervical cancer screening recommendations, your next PAP and HPV should be in 3 years. Continue to schedule your annual preventive exams for your overall health.If you have questions about cervical cancer screening or your test results, callCervical Cancer Screening and Management [phone],Katrin Melchor, RN on behalf ofDr. Haydee Osorio, Medical DirectorMurray County Medical Center Cervical Cancer Screening and Management Akilah Hicks MD LAB_1 HP CONVERSION from Last 3 Months or Most Recently Relevant to Health Maintenance Care Teams Research And Development Scientist Relationship Specialty Start [place] [address] [place] [address] PCP - General 05/29/10
--- OUTSIDE RECORDS SUMMARY | 2023-09-13 01:31 | XMS_ITS | Encounter Summary ---
Author Organization [employer] Address [address] [place] [address] Care Team Providers Care Sorter/Assay Tech Name Role Phone No Ref-Primary, Physician Primary Care Provider Encounter Details Date Type Department Care Team (Latest Contact Info) Description 06/11/2023 Travel Social History Tobacco Use Types Packs/Day Years [...] on file documented as of this encounter Plan of Treatment Not on file documented as of this encounter Visit Diagnoses Not on filedocumented in this encounter Care Teams Sorter/Assay Tech Relationship Specialty Start Date End Date No Ref-Primary, Physician PCP - General 03/29/19 documented as of this encounter
--- OUTSIDE RECORDS SUMMARY | 2023-09-13 01:31 | XMS_ITS | Clinical Summary ---
Author Organization [facility] Address [place], [place] [address] Care Team Providers Care Electorate Officer Name Role Phone Pcp, No Primary Care Provider Akilah Arcos MD Unavailable Allergies Active Allergy Reactions Criticality Noted Date Comments Amoxicillin Anaphylaxis High 01/23/2023 Tree Nut Hives,Edema High 07/26/2017 Penicillin G Anaphylaxis High 01/23/2023 Ceftriaxone Hives 01/23/2023 Medications Medication Sig Dispensed Refills Start Date End Date Status AZITHROMYCIN 250 MG TABIndications:Bronchi tis, not specified as acute or chronic take 2 tablets (500 mg) by oral route once daily for 1 day then 1 tablet (250 mg) by oral route once daily for 4 days 6 0 01/28/2007 Active Active Problems Problem Noted Date Diagnosed Date Moderate episode of recurrent major depressive d isorder 07/26/2017 Encounters Date Type Department Care Team Description 09/12/2023 Lab Requisition [facility] [phone] Ophelia Phipps MD from Last 3 Months Social History Tobacco Use Types Packs/Day Years Used Date Smoking Tobacco: Never Assessed Smokeless Tobacco: Never Alcohol Use Standard Drinks/Week Comments No 0 (1 standard drink = 0.6 oz pur e alcohol) Sex and Gender Information Value Date Recorded Sex Assigned at Not on file Gender Identity Not on file Sexual Orientation Not on file Obstetrics History Last Filed Vital Signs Vital Sign Reading Time Taken Comments Blood Pressure 109/77 01/23/2023 11:55 PM [employer] Pulse 77 01/23/2023 11:55 PM [employer] Temperature 36.7 ??C (98.1 ??F) 01/23/2023 11:[address] Respiratory Rate 16 01/23/2023 11:55 PM [employer] Oxygen Saturation 96% 01/23/2023 11:55 PM [employer] Inhaled Oxygen Concentration - - Weight 70.3 kg (155 lb) 01/23/2023 11:55 PM [employer] Height 165.1 cm (5' 5) 10/12/2017 11:56 AM CDT Body Mass Index 25.79 10/12/2017 11:56 AM CDT Plan of Treatment Health Maintenance Due Date Last Done Comments Tdap 09/28/1999 Depression screening for age 12+ 2000 HIV for age 15-65 09/28/2003 BMI (ht and wt on same day) for age 18+ 2006 Hepatitis C screening for age 18-79 2006 Tetanus booster 2008 COVID-19 vaccine series (2022- season) 2022 Influenza for age 9-49 10/27/2023 Pap test for age 21-65 09/12/2025 , 09/12/2022, 04/06/2021, Additional history exists Pneumococcal series for age 6-64 Aged Out No longer eligible based on patient's age to complete this topic Procedures Procedure Name Priority Date/Time Associated Diagnosis Comments HPV THIN PREP Routine 09/12/2022 1:20 PM CDT from Last 3 Months or Most Recently Relevant to Health Maintenance Results * (ABNORMAL) HPV HIGH RISK (09/12/2022 1:20 PM CDT) TYPE 16 Negative Negative 09/20/2022 11:16 AM CDT [facility] Leevia [facility] TYPE 18 Negative Negative 09/20/2022 11:16 AM CDT [facility] OTHER HIGH RISK TYPES Positive(A) Negative 09/20/2022 11:16 AM CDT [facility] Other (Other) Client Collect / Unknown 09/12/2022 1:20 PM CDT 09/18/2022 5:48 AM [facility] 09/20/[facility] 11:16 AM CDT Specimen is positive for the DNA of any one of, or combination of, the following high risk HPV types: 31, 33, 35, 39, 45, 51, 52, 56, 58, 59, 66, 68. HPV types 16 and 18 DNA were undetectable or below the pre-set threshold. ? Methodology: Klaudia Clement 4800 HPV Test Ophelia Phipps MD MICROBIOLOGY [facility] [address] [place] [address], from Last 3 Months or Most Recently Relevant to Health Maintenance Advance Directives * Full Code (Latest Code Status on File) Date Activated Date Inactivated Comments 07/26/2017 7:22 AM 07/26/2017 3:37 PM Question Answer Comments Code Status Discussion: Not Discussed Care Teams Electorate Officer Relationship Specialty Start Date End Date Pcp, No . PCP - General 01/23/23 Akilah Hicks MD . Internal Medicine 01/23/23
== END 2023-09-10 09:59 | disposition home or self-care (01) ==
LOC: NFLDREF 09-13 01:29
PROVIDERS: PCP Family Medicine; Referring Provider Family Medicine; Visit Provider Family Medicine
DX: R79.89 Other specified abnormal findings of blood chemistry (principal); E78.5 Hyperlipidemia, unspecified; Z13.29 Encounter for screening for other suspected endocrine disorder; Z11.59 Encounter for screening for other viral diseases
CPT/HCPCS: 80053; 80061; 84443; 86803; 87340

== ENCOUNTER 2023-09-19 07:23 | Outpatient (CLI) | payer OTHER, SELFPAY ==
--- NOTE | 2023-09-19 07:15 | CRLHL7_ITS ---
For Patients: As a result of the Century Cures Act, medical imaging exams and procedure reports are released immediately into your electronic medical record. You may view this report before your referring provider. If you have questions, please contact your health care provider. INDICATION: family history of DAS disease COMPARISON: none TECHNIQUE: Real time huitron scale imaging and color Doppler analysis was performed of the right upper quadrant. FINDINGS: The patient`s liver is of normal size and has uniform echogenicity. There is a normal appearance of the hepatic IVC and proximal abdominal aorta. There is no evidence of ascites. The gallbladder is of normal size and there is no evidence of intraluminal stones or sludge. The gallbladder wall measures 1.8 mm in thickness. The common bile duct is of normal size and measures 3.9 mm in diameter at the level of the viktor hepatis. The pancreas appears normal. There is no evidence of a stone or hydronephrosis within the right kidney. The right kidney measures 10.6 cm in length. IMPRESSION: Normal right upper quadrant ultrasound. Dictated by Sai Rubalcava MD @ 09/20/2023 12:04:49 PM (Electronically Signed)
--- OUTSIDE RECORDS SUMMARY | 2023-09-19 07:24 | XMS_ITS | Clinical Summary ---
Author Organization [employer] Address [address], [place] [address] Care Team Providers Care Director Of Instructional Technology Name Role Phone Akilah Hicks MD Primary Care Provider [phone] Source Comments You are receiving this document [...] for each transition of care or referral. [employer] Allergies Active Allergy Reactions Criticality Noted Date [...] (CHUNG) 3-0.02 MG tablet 09/15/2018 Active rizatriptan (MAXALT-TENNIS BALL COVER CEMENTER) 5 MG disintegrating tabletIndications:In tractable migraine without [...] Migraine Common Insomnia 07/19/2004 Overview: LW Onset: [id number] ; Insomnia NOS Resolved Problems Problem Noted Date Diagnosed Date Resolved Date Anxiety 12/19/2014 10/19/2015 Anxiety state 07/19/2010 05/22/2013 Overview: Anxiety NOS Sinusitis, chronic 05/13/2008 6 Overview: Sinusitis Chronic Dyspepsia and disorder of function of stomach 07/20/19 05 12/02/2005 Overview: LW Onset: 00Vqv36 ; Dyspepsia Immunizations Name Administration Dates Next Due 4vHPV (Gardasil) 07/31/2013,05/22/2013 9vHPV (Gardasil 9) 10/19/2015 Flu Vac Preserv Free (3+yrs) 12/18/2011 HepB, Unspecified Formulation 12/17/2000, 001,06/07/2000 Influenza IIV4 (Quadrivalent) 0.5mL (41229) 09/26,10/25/2014 TDAP (ADACEL) 12/18/2011 Td 11/03/2001 Family [...] CDT FINAL GYNECOLOGICAL CYTOLOGY REPORT Pathology #: [id number] ?Date Obtained: 10/19/2015 ? Date Received: 10/20/2015 INTERPRETATION/RESULTS: Negative for Intraepithelial Lesion or Malignancy. SPECIMEN ADEQUACY: Satisfactory for Evaluation. ??No endocervical cells/transformation zone component present. Verified on 10/25/2015 ??by RASHEEDA BURNS (electronic signature) CLINICAL NOTES: ?Abnormal bleeding: No, LMP: [id number], Menstrual status: None ?Apply, Current form of [...] and false-negative reports may occur. Performed at [facility], [address] [place] [address] Transcriptions 04/04/2016 2:19 PM CSTNotes Recorded by [...] test results, callCervical Cancer Screening and Management [phone],Katrin Melchor, RN on behalf ofDr. Haydee Osorio, Medical DirectorMayo Clinic Health System Cervical Cancer Screening and Management Akilah Hicks MD LAB_1 HP CONVERSION from Last 3 Months or Most Recently Relevant to Health Maintenance Care Teams Director Of Instructional Technology Relationship Specialty [place] [address] [place] [address] PCP - General 05/29/10
--- OUTSIDE RECORDS SUMMARY | 2023-09-19 07:25 | XMS_ITS | Encounter Summary ---
Author Organization [employer] Address [address] [place] [address] Care Team Providers Care General Labor Forklift Operator Name Role Phone No Ref-Primary, Physician Primary Care Provider Reason for Visit * Reason Comments Chest Pain Encounter Details Date Type Department Care Team (Late st Contact Info) Description 06/11/2023 2:19 PM CDT - 06/11/2023 7:15 PM CDT Emergency [facility] Emergency Dept [address] [place] [address] Tai Bermudez MD [facility] [address] [place] [address] Nonintractable headache, unspecified chronicity pattern, unspecified headache [...] had onset of headache. 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 She felt tired but otherwise well [...] Pt had migraine that presented like stroke [id number] with right arm numbness. Pt cannot recall [...] egg donor C EACH ADD TOOTH EXTRACTION [place] teeth ORTHOPEDIC SURGERY leg broken in 3 [...] Pressure Ventricular Rate 70 Atrial Rate 70 PA Interval 130 QRS Duration 98 QT 440 QTc 475 P [place] 63 R AXIS 70 T [place] 56 Interpretation ECG Sinus rhythm Normal ECG When compared with ECG of 13-SEP-2022 16:53, No significant change was found Unconfirmed report - interpretation of this ECG is computer generated - see medical record for final interpretation Confirmed by - EMERGENCY ROOM, PHYSICIAN ([id number]), editor book MADDY CALHOUN ([id number]) on 06/11/2023 12:48:29 PM Imaging: CT Chest Pulmonary Embolism w Contrast Final Result IMPRESSION: No evidence of a pulmonary embolus, or acute process within the thorax. MAURICIO KAHN MD SYSTEM ID: [id number] CTA Head Neck with Contrast Final Result IMPRESSION: Patent arteries in the head and neck without vascular cutoff. No evidence of dissection. No aneurysm identified. No significant stenosis. SUZI SERRANO MD SYSTEM ID: [id number] Head CT w/o contrast Final Result IMPRESSION: No evidence of acute intracranial hemorrhage, mass, or herniation. SUZI SERRANO MD SYSTEM ID: [id number] Laboratory: Labs Ordered and Resulted from Time [...] 1,000 mL (0 mLs Intravenous Stopped 06/11/23 5129) iopamidol (ISOVUE-370) solution 500 mL (80 mLs [...] the thorax. MAURICIO KAHN MD SYSTEM ID: ??[id number] Narrative 06/11/2023 4:[address] CHEST PULMONARY EMBOLISM WITH CONTRAST June 11, 2023 3:23 PM CLINICAL HISTORY: Evaluate for pulmonary embolus or dissection, chest pain, right neck pain, short of breath, vomiting, severe headache. TECHNIQUE: CT angiogram chest during arterial phase injection IV contrast. 2D and 3D MIP reconstructions were performed by the cat scan technologist. Dose reduction techniques were used. CONTRAST: [...] 3D MIP reconstructions were performed by the cat scan technologist. Dose reduction techniques were used. CONTRAST: [...] the thorax. MAURICIO KAHN MD SYSTEM ID: [id number] Tai Bermudez MD IM CT ORDERABLES * [...] significant stenosis. SUZI SERRANO MD SYSTEM ID: ??[id number] Narrative 06/11/2023 3:[address] ANGIOGRAM [...] significant stenosis. SUZI SERRANO MD SYSTEM ID: [id number] Tai Bermudez MD [facility] ORDERABLES * Head CT w/o contrast (06/11/2023 3:14 PM CDT) Anatomical Region Laterality Modality Head, SUBRAD CT NEURO, SUBRA D CT NEURO, UMP CT NEURO, RAD CT Computed Tomography Impressions 06/11/2023 3:29 PM CDT IMPRESSION: No evidence of acute intracranial hemorrhage, mass, or herniation. SUZI SERRANO MD SYSTEM ID: ??[id number] Narrative 06/11/2023 3:[address] SCAN [...] or herniation. SUZI SERRANO MD SYSTEM ID: [id number] Tai Bermudez MD IMG CT ORDERABLES * HCG QUALitative (blood) (06/11/2023 12:20 PM CDT) hCG Serum Qualitative Negative Negative LISA 06/11/2023 2:52 PM CDT LABORATORY Comment:This test is for scr eening purposes. Results should be interpreted along with the clinical picture. Confirmation testing is available if warranted by ordering [id number], HCG Quantitative . Blood STRUCTURE OF LEFT UPPER LIMB / Unknown Venipuncture / Unknown 06/11/2023 12:20 PM CDT 06/11/2023 12:31 PM CDT Tai Bermudez MD LAB - BLOOD ORDERABL ES [facility] Acute Care Lab [address] [facility] Lab (1st floor, no room number) [place] [address], [facility] * Extra Red Top Tube (06/11/2023 12:20 PM CDT) Hold Specimen [facility] 06/11/2023 1:32 PM CDT RH LABORATORY Blood STRUCTURE OF LEFT UPPER LIMB / Unknown Venipuncture / Unknown 06/11/2023 12:20 PM CDT 06/11/2023 12:31 PM CDT Tai Bermudez MD LAB - BLOOD ORDERABL ES [facility] Care Lab [address] Lab (1st floor, no room number) [place] [address], [facility] * Extra Blue Top Tube (06/11/2023 12:20 PM CDT) Hold Specimen [facility] 06/11/2023 1:32 PM CDT RH LABORATORY Blood STRUCTURE OF LEFT UPPER LIMB / Unknown Venipuncture / Unknown 06/11/2023 12:20 PM CDT 06/11/2023 12:31 PM CDT Tai Bermudez MD LAB - BLOOD ORDERABL ES Performing Organization Address City/[facility]/ZIP Co de Phone Number [facility] Lab [address] Lab (1st floor, no room number) [place] [phone] * (ABNORMAL) CBC with platelets and differential (06/11/2023 12:20 PM CDT) [facility] WBC Count 12.0(H) 4.0 - 11.0 10e3/uL [...] - BLOOD ORDERABL ES Performing Organization Address [facility]/ZIP Co de Phone Number [facility] Acute Care Lab [address] Lab (1st floor, no room number) [place] [address] * Troponin T, High Sensitivity (06/11/2023 12:20 [...] - BLOOD ORDERABL ES Performing Organization Address [facility]/ZIP Co de Phone Number [facility] Acute Care Lab [address] Lab (1st floor, no room number) [place] [address], [facility] * (ABNORMAL) Basic metabolic panel [...] MD LAB - BLOOD ORDERABL ES LABORATORY [facility] Acute Care Lab [address] [facility] Lab (1st floor, no room number) [place] [address] * EKG 12-lead, tracing only (06/11/2023 12:02 PM CDT) Systolic Blood Pressure mmHg RADIOLOGY RESULTS Diastolic Blood Pressure mmHg RADIOLOGY RESULTS Ventricular Rate 70 BPM RAD IOLOGY RESULTS Atrial Rate 70 BPM RADIOLOG Y RESULTS PA Interval 130 ms RADIOLOG Y RESULTS QRS Duration 98 ms RADIOLO GY RESULTS QT 440 ms RADIOLOGY RESULTS QTc 475 ms RADIOLOGY RESULTS P [place] 63 degrees RADIOLOGY RESULTS R AXIS 70 degrees RADIOLOGY RESULTS T [place] 56 degrees RADIOLOGY RESULTS Interpretation ECG Sinus rhythm Normal ECG When compared with ECG of 13-SEP-2022 16:53, No significant change was found Unconfirmed report - interpretation of this ECG is computer generated - see medical record for final interpretation Confirmed by - EMERGENCY ROOM, PHYSICIAN ([id number]), editor book MADDY CALHOUN ([id number]) on 06/11/2023 12:48:29 PM RADIOLOGY RESULTS 06/11/2023 [...] Irritant. documented in this encounter Care Teams General Labor Forklift Operator Relationship Specialty Start Date End Date No Ref-Primary, Physician PCP - General 03/29/19 documented as of this encounter
--- OUTSIDE RECORDS SUMMARY | 2023-09-19 07:25 | XMS_ITS | Clinical Summary ---
Author Organization [employer] Address [place], [place] [address] Care Team Providers Care Supervisor Tunnel Heading Name Role Phone Pcp, No Primary Care [...] Department Care Team Description 09/12/[address] [facility] [phone] Ophelia Phipps MD from Last 3 Months [...] Comments Blood Pressure 109/77 01/23/2023 11:55 PM INDUSTRIAL INSULATOR Pulse 77 01/23/2023 11:55 PM INDUSTRIAL INSULATOR Temperature 36.7 ??C (98.1 ??F) 01/23/2023 11:[address] Respiratory Rate 16 01/23/2023 11:55 PM INDUSTRIAL INSULATOR Oxygen Saturation 96% 01/23/2023 11:55 PM INDUSTRIAL INSULATOR Inhaled Oxygen Concentration - - Weight 70.3 kg (155 lb) 01/23/2023 11:55 PM INDUSTRIAL INSULATOR Height 165.1 cm (5' 5) 10/12/2017 11:56 [...] 9-49 10/27/2023 Pap test for age 21-65 09/11/2026 , 09/12/2022, 09/12/2022, Additional history exists Pneumococcal series for age 6-64 Aged Out No longer eligible based on patient's age to complete this topic Procedures Procedure Name Priority Date/Time Associated Diagnosis Comments LAB TRACKING EVENT Routine 09/12/2023 12 :00 PM CDT HPV THIN PREP Routine 09/12/2023 10:25 AM CDT from Last 3 Months Results * LAB TRACKING EVENT (09/12/2023 12:00 PM CDT) Other (Other) Client Collect / Unknown 09/12/2023 12:00 PM CDT 09/12/2023 3:38 PM CDT Ophelia Phipps MD LAB BILL ONLY [facility] [address] [place] [address], * HPV HIGH RISK (09/12/2023 10:25 AM CDT) TYPE 16 Negative Negative 09/18/2023 6:23 AM CDT [facility] TYPE 18 Negative Negative 09/18/2023 6:23 AM CDT [facility] OTHER HIGH RISK TYPES Negative Negative 09/18/2023 6:23 AM CDT [facility] Other (Cervical) 09/12/2023 10:25 AM CDT 09/13/2023 10:15 AM CDT Narrative [facility] - 09/18/2023 6:23 AM CDT HPV types 16, 18, 31, 33, 35, 39, 45, 51, 52, 56, 58, 59, 66 and 68 DNA were undetectable or below the pre-set threshold. Methodology: Klaudia Clement 4800 HPV Test Ophelia Phipps MD MICROBIOLOGY [facility] [address] [place] [address], from Last 3 Months Advance Directives * Full Code (Latest Code Status on File) Date Activated Date Inactivated Comments 07/26/2017 7:22 AM 07/26/2017 3:37 PM Question Answer Comments Code Status Discussion: Not Discussed Care Teams Supervisor Tunnel Heading Relationship Specialty Start Date End Date Pcp, No . PCP - General 01/23/23 Akilah Hicks MD . Internal Medicine 01/23/23
--- OUTSIDE RECORDS SUMMARY | 2023-09-19 07:25 | XMS_ITS | Referral Summary ---
Author Organization [facility] Address [address] [place] [address] Care Team Providers Care Evaporator Operator Name Role Phone No Ref-Primary, Physician [...] Noted Date Diagnosed Date Resolved Date Health [facility] 10/20/2018 08/12/2023 Immunizations Name Administration Dates Next [...] of Treatment Not on file Care Teams Evaporator Operator Relationship Specialty Start Date End Date No Ref-Primary, Physician PCP - General 03/29/19
--- OUTSIDE RECORDS SUMMARY | 2023-09-19 07:25 | XMS_ITS | Encounter Summary ---
Author Organization [facility] Address [address] [place] [address] Care Team Providers Care Shrimp Cleaner Name Role Phone No Ref-Primary, Physician Primary [...] on filedocumented in this encounter Care Teams Shrimp Cleaner Relationship Specialty Start Date End Date No Ref-Primary, Physician PCP - General 03/29/19 documented as of this encounter
--- OUTSIDE RECORDS SUMMARY | 2023-09-19 07:25 | XMS_ITS | Clinical Summary ---
Author Organization [facility] Address [address] [place] [address] Care Team Providers Care Rock Wool Applicator Name Role Phone No Ref-Primary, Physician Primary [...] Noted Date Diagnosed Date Resolved Date [facility] 10/20/2018 08/12/2023 Immunizations Name Administration Dates Next [...] age to complete this topic Care Teams Rock Wool Applicator Relationship Specialty Start Date End Date No Ref-Primary, Physician PCP - General 03/29/19
--- OUTSIDE RECORDS SUMMARY | 2023-09-19 07:25 | XMS_ITS | Encounter Summary ---
Author Organization [employer] Address [address], [place] [address] Care Team Providers Care Diesel Service Apprentice Name Role Phone Akilah Hicks MD Primary Care Provider [phone] Reason for Visit * Reason Comments Headache CHEST PAIN Encounter Details Date Type Department Care Team (Late st Contact Info) Description 06/11/2023 12:20 PM CDT [facility] [address] [place] [address] Oscar Davalos PA-C [address] [place] [address] Chest pain, unspecified type; Acute intractable headache, [...] 12:00 AM CDT NAME: KRYSTINA LANG CSN: [id number] CLINIC NOTE DATE OF SERVICE: 06/11/2023 : [...] of heart disease on Dad's side including [place] sometimes at young ages. She has hada [...] All updated and reviewed by myself in [facility]. SURGICAL HISTORY: All updated and reviewed by myself in [facility]. SOCIAL HISTORY: All updated and reviewed by myself in [facility]. ALLERGIES: ALL UPDATED AND REVIEWED BY MYSELF IN [facility]. MEDICATIONS: All updated and reviewed by myself in [facility]. VITAL SIGNS: All updated and reviewed by myself in [facility]. PHYSICAL EXAMINATION: GENERAL: Well-developed, well-nourished female, [...] with one of the ER doctors at [facility] across the street who agreed to accept the transfer. She had a port cdl a driver here,so I felt it was best to get her to the emergency room as quickly as possible and that is what the patient wanted. She did not want ambulance transfer, so the patient was taken across the street by the port cdl a driver for further evaluation and treatment. The patient was agreeable to this plan, left in stable condition. DENITA HENSON/RANDY /[id number] documented in this encounter Nursing Notes * [...] GHP QTc 437 ms MUSE GHP P Talpa 64 degrees MUSE GHP R Talpa 67 degrees MUSE GHP T Talpa 55 degrees MUSE GHP 06/11/2023 12:0 3 [...] change was found Confirmed by Russ Centeno ([id number]) on 06/11/2023 11:11:37 AM Delfino K Jayne MBBS PN ECG ORDERABLES MUSE GHP [address] [place] [address] documented in this encounter Visit Diagnoses Diagnosis [...] mg documented in this encounter Care Teams Diesel Service Apprentice Relationship Specialty [place] [address] [place] [address] PCP - General 05/29/10 documented as of this encounter
== END 2023-09-19 07:24 | disposition home or self-care (01) ==
LOC: US 07:23
PROVIDERS: PCP Family Medicine; Visit Provider Family Medicine
DX: R74.01 Elevation of levels of liver transaminase levels (principal); Z83.79 Family history of other diseases of the digestive system
CPT/HCPCS: 76705

== ENCOUNTER 2023-10-16 13:08 | Emergency (ER) | payer OTHER, SELFPAY ==
[2023-10-16] VITALS (9 sets, daily range): BP systolic 111–123; BP diastolic 71–84; PULSE 70–82; RESP 18; TEMP 36.7; O2SAT 98–100; BMI 23.4
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
--- NOTE | 2023-10-16 13:26 | CRLHL7_ITS ---
For Patients: As a result of the Cures Act, medical imaging exams and procedure reports are released immediately into your electronic medical record. You may view this report before your referring provider. If you have questions, please contact your health care provider. INDICATION: Tachycardia, bradycardia. TECHNIQUE: Chest 1 views. COMPARISON: March 10, 2021. FINDINGS: Cardiovascular and mediastinum: Heart size and vasculature are normal in caliber and appearance. Lungs and pleural spaces: Lungs are clear. No sign of infiltrate or mass. No sign of pleural effusion. No pneumothorax. Bones and soft tissues: No significant findings. IMPRESSION: No acute or significant findings. Dictated by Sulaiman Parisi MD @ 10/16/2023 1:45:12 PM (Electronically Signed)
[2023-10-16 14:00] LABS: Basophils Absolute Auto 0.02 K/uL (0.00-0.30); Basophils Percent Auto 0.3 % (0.0-3.0); Eosinophils Absolute Auto 0.02 K/uL (0.00-0.50); Eosinophils Percent Auto 0.3 % (0.0-7.0); Hematocrit 43.4 % (33.0-51.0); Hemoglobin* 14.3 gm/dL (12.0-16.0); Immature Granulocytes Abs Auto 0.01 K/uL (0.00-0.30); Immature Granulocytes Pct Auto 0.1 %; Lymphocytes Absolute Auto 1.44 K/uL (0.90-2.90); Lymphocytes Percent Auto 20.5 % (20-44); Mean Corpuscular HGB Conc 33 gm/dL (32-36); Mean Corpuscular Hemoglobin 29 pg (26-34); Mean Corpuscular Volume 87 fL (80-100); Monocytes Percent Auto 2.6 % (0.0-11.0); Neutrophils Percent Auto 76.2 % (42.0-72.0); Platelet Count* 229 K/uL (140-440); RDW Coefficient of Variation % 12.4 % (11.5-15.5); Red Blood Count 4.98 m/uL (4.00-5.20); White Blood Count* 7.02 K/uL (4.50-11.00)
[2023-10-16 14:11] LABS: Slide Review Reflex No
--- OUTSIDE RECORDS SUMMARY | 2023-10-16 14:11 | XMS_ITS | Clinical Summary ---
Author Organization [facility] Address [address] [place] [address] Care Team Providers Care Trauma Doctor Name Role Phone No Ref-Primary, Physician Primary [...] Noted Date Diagnosed Date Resolved Date Health [facility] 10/20/2018 08/12/2023 Immunizations Name Administration Dates Next [...] age to complete this topic Care Teams Trauma Doctor Relationship Specialty Start Date End Date No Ref-Primary, Physician PCP - General 03/29/19
--- OUTSIDE RECORDS SUMMARY | 2023-10-16 14:11 | XMS_ITS | Referral Summary ---
Author Organization [facility] Address [address] [place] [address] Care Team Providers Care Greenhouse Assistant Name Role Phone No Ref-Primary, Physician Primary [...] Noted Date Diagnosed Date Resolved Date [facility] 10/20/2018 08/12/2023 Immunizations Name Administration Dates Next [...] of Treatment Not on file Care Teams Greenhouse Assistant Relationship Specialty Start Date End Date No Ref-Primary, Physician PCP - General 03/29/19
--- OUTSIDE RECORDS SUMMARY | 2023-10-16 14:11 | XMS_ITS | Clinical Summary ---
Author Organization [employer] [facility] [employer] Address [place], [place] [address] Care Team Providers Care Machinist 2Nd Shift Name Role Phone Pcp, No Primary Care [...] Department Care Team Description 09/12/2023 Lab Requisition [facility] [phone] Ophelia Phipps MD from Last 3 Months [...] Comments Blood Pressure 109/77 01/23/2023 11:55 PM MULE DEVELOPER Pulse 77 01/23/2023 11:55 PM MULE DEVELOPER Temperature 36.7 ??C (98.1 ??F) 01/23/2023 11:[address] Respiratory Rate 16 01/23/2023 11:55 PM MULE DEVELOPER Oxygen Saturation 96% 01/23/2023 11:55 PM MULE DEVELOPER Inhaled Oxygen Concentration - - Weight 70.3 kg (155 lb) 01/23/2023 11:55 PM MULE DEVELOPER Height 165.1 cm (5' 5) 10/12/2017 11:56 [...] Pap test for age 21-65 09/11/2026 , 09/12/2023, 09/12/2022, Additional history exists Pneumococcal series for age 6-64 Aged Out No longer eligible based on patient's age to complete this topic Procedures Procedure Name Priority Date/Time Associated Diagnosis Comments LAB TRACKING EVENT Routine 09/12/2023 12 :00 PM CDT SEQUINS STRINGER THIN PREP PAP SCREEN IMAGED Routine 09/12/2023 10:25 AM CDT HPV THIN PREP Routine 09/12/2023 10:25 AM CDT from Last 3 Months Results * LAB TRACKING EVENT (09/12/2023 12:00 PM CDT) Other (Other) Client Collect / Unknown 09/12/2023 12:00 PM CDT 09/12/2023 3:38 PM CDT Ophelia Phipps MD LAB BILL ONLY [facility] [address] [place] [address], * SEQUINS STRINGER THIN PREP PAP SCREEN IMAGED (09/12/2023 10:25 AM CDT) Case Report Gynecologic Cytology Report ? Case: [id number] ? Authorizing Provider: ??Ophelia Phipps MD ??Collected: ? 09/12/2023 1025 ? Ordering Location: ? [facility] ?Received: ?09/13/2023 1015 ? First Screen: ?Maury Patel ? Rescreen: ?Haroldo, Lena ? Pathologist: ? Barry-Chandrika, Tierra ? MD Caitlin ? Specimen: ?SEQUINS STRINGER ThinPrep Vial Screening, Cervical ? 09/20/2023 12:00 PM CDT [facility] INTERPRETATION/ RESULT NEGATIVE FOR INTRAEPITHELIAL LESION OR MALIGNANCY (NIL) (none) 09/20/2023 12:00 PM CDT [facility] R NON-NEOPLASTIC FINDING(S) Reactive cellular changes associated with inflammation/repa ir 09/20/2023 12:00 PM CDT [facility] SPECIMEN ADEQUACY Satisfactory for evaluation Endocervical component present 09/20/2023 12:00 PM CDT [facility] HPV REQUEST HPV and PAP 09/20/2023 12:00 PM T [facility] Last Pap Date 09/12/2022 09/20/2023 12:00 PM CDT [facility] Last Pap Result LSIL 12:00 PM CDT [facility] Abnormal Pap or [place] Bx in last 5 years Yes 09/20/2023 12:00 PM T [facility] Pres[place] Bx Done Today No 09/20/2023 12:00 PM T [facility] Additional Information 09/20/2023 12:00 PM T [facility] Comment: Interpreted at [facility], Central Laboratory - [address], [place] [address] Automated Review Successful 09/20/2023 12:00 PM T [facility] Comment:Specimen processed s uccessfully by automated nut chopper device, ThinPrep Imaging System, [employer] ANCILLARY TESTING SEQUINS STRINGER HPV Ordered, Please see separate report 09/20/2023 12:00 PM T [facility] Note The pap test is a screening technique, not a diagnostic procedure. It is used primarily to screen for squamous cancers and precursor lesions. Published studies have shown that it is subject to both false negative and false positive results. The pap test should not be used as the sole means to diagnose or exclude pre-malignant and malignant lesions. 09/20/2023 12:00 PM CDT [facility] [employer] [facility] Other (Cervical) 09/12/2023 10:25 AM CDT 09/13/2023 10:15 AM CDT Ophelia Phipps MD PATHOLOGY/CYTOLO GY Performing Organization Address [facility] Co de Phone Number [facility] [address] [place] [address], * HPV HIGH RISK (09/12/2023 10:25 AM CDT) TYPE 16 Negative Negative 09/18/2023 6:23 AM CDT [facility] TYPE 18 Negative Negative 09/18/2023 6:23 AM CDT [facility] OTHER HIGH RISK TYPES Negative Negative 09/18/2023 6:23 AM CDT [facility] Other (Cervical) 09/12/2023 10:25 AM CDT 09/13/2023 10:15 AM CDT Narrative [facility] - 09/18/2023 6:23 AM CDT HPV types 16, 18, 31, 33, 35, 39, 45, 51, 52, 56, 58, 59, 66 and 68 DNA were undetectable or below the pre-set threshold. Methodology: Klaudia Clement 4800 HPV Test Ophelia Phipps MD MICROBIOLOGY Performing Organization Address [facility]/ZIP Co de Phone Number [facility] [address] [place] [address], from Last 3 Months Advance Directives * Full Code (Latest Code Status on File) Date Activated Date Inactivated Comments 07/26/2017 7:22 AM 07/26/2017 3:37 PM Question Answer Comments Code Status Discussion: Not Discussed Care Teams Machinist 2Nd Shift Relationship Specialty Start Date End Date Pcp, No . PCP - General 01/23/23 Akilah Hicks MD . Internal Medicine 01/23/23
--- OUTSIDE RECORDS SUMMARY | 2023-10-16 14:11 | XMS_ITS | Clinical Summary ---
Author Organization [employer] Address [address], [place] [address] Care Team Providers Care High School Business Teacher Name Role Phone Akilah Hicks MD Primary Care Provider [phone] Source Comments You are receiving this document [...] for each transition of care or referral. S[facility] Allergies Active Allergy Reactions Criticality Noted Date [...] (CHUNG) 3-0.02 MG tablet 09/15/2018 Active rizatriptan (MAXALT-PERSONAL PROTECTION SPECIALIST) 5 MG disintegrating tabletIndications:In tractable migraine without [...] anxiety disorder) 08/05/2017 Migraine without aura 07/19/2010 Overview (10/17/2016): Migraine Common Insomnia 07/19/2004 Overview (10/17/2016): LW Onset: [id number] ; Insomnia NOS Resolved Problems Problem Noted Date Diagnosed Date Resolved Date Anxiety 12/19/2014 10/19/2015 Anxiety state 07/19/2010 05/22/2013 Overview (10/17/2016): Anxiety NOS Sinusitis, chronic 05/13/2008 6 Overview (10/17/2016): Sinusitis Chronic Dyspepsia and disorder of function of stomach 07/20/19 05 12/02/2005 Overview (10/17/2016): LW Onset: [id number] ; Dyspepsia Immunizations Name Administration Dates Next Due 4vHPV (Gardasil) 07/31/2013,05/22/2013 9vHPV (Gardasil 9) 10/19/2015 Flu Vac Preserv Free (3+yrs) 12/18/2011 HepB, Unspecified Formulation 12/17/2000, 001,06/07/2000 Influenza IIV4 (Quadrivalent) 0.5mL (53079) 09/26,10/25/2014 TDAP (ADACEL) 12/18/2011 Td 11/03/2001 Family [...] Comments Hep C Screening (Preventive Services) 1988 MTM Covered 1988 HIV Screening (Preventive Services) 2004 Cervical Cancer Screening 10/18/20182015, 05/22/2013, 10/11/2010, Additional history exists Adult Preventive Visit 08/27/2019 08/26/2017 COVID-19 Vaccine ( season) 2022 06/21/2020, 05/31/2020 Influenza (#1) 2023 04/06/2021, 10/26, 10/19/2015, Additional history exists DTaP/Tdap/Td (7 - Tdap) 10/11/2029 10/12/19, 12/18/2011, 12/18/2011 (Completed), Additional history exists Zoster/Shingles [...] CDT FINAL GYNECOLOGICAL CYTOLOGY REPORT Pathology #: [id number] ?Date Obtained: 10/19/2015 ? Date Received: 10/20/2015 INTERPRETATION/RESULTS: Negative for Intraepithelial Lesion or Malignancy. SPECIMEN ADEQUACY: Satisfactory for Evaluation. ??No endocervical cells/transformation zone component present. Verified on 10/25/2015 ??by RASHEEDA BURNS (electronic signature) CLINICAL NOTES: ?Abnormal bleeding: No, LMP: [id number], Menstrual status: None ?Apply, Current form of [...] and false-negative reports may occur. Performed at [facility], [address] [place] [id number] Transcriptions 04/04/2016 2:19 PM CSTNotes Recorded by Katrin Melchor RN on 10/26/2015 at 10:31 April Flaherty,I am [...] test results, callCervical Cancer Screening and Management [id number],Katrin Melchor RN on behalf ofDr. Haydee Osorio, Medical DirectorNew Prague Hospital Cervical Cancer Screening and Management Akilah Hicks MD LAB_1 HP CONVERSION from Last 3 Months or Most Recently Relevant to Health Maintenance Care Teams High School Business Teacher Relationship Specialty [place] [address] [place] [address] PCP - General 05/29/10
[2023-10-16 14:24] LABS: Magnesium* 2.2 mg/dL (1.5-2.6)
[2023-10-16 14:25] LABS: Chloride* 105 mmol/L (96-114)
[2023-10-16 14:26] LABS: Potassium* 3.7 mmol/L (3.6-5.1); Sodium* 139 mmol/L (135-149)
[2023-10-16 14:28] LABS: Creatinine* 0.8 mg/dL (0.5-1.5); Est. Creatinine Clearance* 91.88; Estimated Glomerular Filt Rate 98 ml/min
[2023-10-16 14:29] LABS: Alanine Aminotransferase* 19 U/L (4-35); Alkaline Phosphatase* 49 U/L (40-150); Anion Gap 10 mEq/L (7-15); Aspartate Amino Transferase* 23 U/L (12-35); Bilirubin Total* 0.8 mg/dL (0.1-1.5); Blood Urea Nitrogen* 8 mg/dL (5-24); Carbon Dioxide* 24 mmol/L (20-32); Glucose* 157 mg/dL (60-115); Total Protein* 7.9 g/dL (6.0-8.3)
[2023-10-16 14:30] LABS: Calcium* 9.9 mg/dL (8.4-10.6)
[2023-10-16 14:32] LABS: C Reactive Protein* 0.5 mg/dL (0.5-1.0)
[2023-10-16 14:34] LABS: NT Pro B Type NatriureticPept* 22 pg/mL
[2023-10-16 14:37] LABS: Troponin I* < 0.01 ng/mL (0.01-0.04)
== END 2023-10-16 15:21 | disposition home or self-care (01) ==
PROVIDERS: Emergency Provider Family Medicine; PCP Family Medicine
DX: R00.2 Palpitations (principal); R00.0 Tachycardia, unspecified
CPT/HCPCS: 36415; 71045; 80053; 83735; 83880; 84443; 84484; 85025; 86140; 93005; 94761; 99284; 99285

== ENCOUNTER 2024-09-10 09:10 | Outpatient (CLI) | payer OTHER, SELFPAY | END 2024-09-10 09:11 | disposition home or self-care (01) | LOC: NFLDREF 09-13 23:31 | PROVIDERS: PCP Family Medicine; Referring Provider Family Medicine; Visit Provider Family Medicine | DX: E78.5 Hyperlipidemia, unspecified (principal); R73.01 Impaired fasting glucose; R79.89 Other specified abnormal findings of blood chemistry; R74.01 Elevation of levels of liver transaminase levels; Z13.6 Encounter for screening for cardiovascular disorders | CPT/HCPCS: 80053; 80061; 82728 ==

== ENCOUNTER 2024-09-15 10:43 | Outpatient (CLI) | payer OTHER, SELFPAY ==
[2024-09-17 22:22] LABS: HPV Source Cervical/Vag
[2024-09-22 15:04] LABS: Pap Test Digital Imaging Done
== END 2024-09-15 10:44 | disposition home or self-care (01) ==
PROVIDERS: PCP Family Medicine; Visit Provider Family Medicine
DX: R87.612 Low grade squamous intraepithelial lesion on cytologic smear of cervix (LGSIL) (principal); Z12.4 Encounter for screening for malignant neoplasm of cervix; Z11.51 Encounter for screening for human papillomavirus (HPV)
CPT/HCPCS: 87624; 87625; 88141; 88142; 88175